=== PATIENT | male | born 1985 | race Two or more races ===

== ENCOUNTER → 2019-01-25 | Day surgery (SDC) | payer SELFPAY ==
[~2019-01-25] MED LIST: IV RINGERS,LACTATED 1000ML 1,000 ML IV SCH; LIDOCAINE 1% PF 2 ML VIAL. ONE; PROPOFOL 60 ML IV ONE
[2019-01-25 14:57] VITALS: BP 121/76
--- NOTE | 2019-01-26 05:17 | CONS ---
DATE OF CONSULTATION: HISTORY OF PRESENT ILLNESS: A 33-year-old male seen with diffuse abdominal pain, is not improved with MiraLax. No family history of gallbladder disease encountered. Previous ultrasound was normal. He does have increasing discomfort with meals and constipation. No melena and/or hematochezia are noted via inspector and sorter. For the continued issues, he is here today for further evaluation. PAST MEDICAL HISTORY: History of possible bowel obstruction. ALLERGIES: None. MEDICATIONS: None. FAMILY AND SOCIAL HISTORY: Noncontributory. REVIEW OF SYSTEMS: Per records. PHYSICAL EXAMINATION: GENERAL: Reveals a well-nourished, well-developed male. VITAL SIGNS: Temp is 99, pulse 67, respiratory rate 16. HEENT: Normocephalic and atraumatic head. Pupils and extraocular muscles are not tested. Sclerae anicteric. NECK: Supple. LUNGS: Clear. CARDIOVASCULAR: Reveals an S1, S2 without S3, S4 or appreciable murmur. ABDOMEN: Reveals soft abdomen. Normal bowel sounds without appreciable hepatosplenomegaly. EXTREMITIES: Reveals no cyanosis, clubbing, edema. IMPRESSION: Diffuse abdominal pain with change in bowel habits, etiology is to be determined; celiac disease; peptic ulcer disease; colon or gastric cancer; other differential as well as partial obstruction. Therefore, recommend if upper endoscopy and colonoscopy is unrevealing, then a CT scan with small bowel series would be pursued. ZACHERY CANNON MD DR: GUILLE/gilda JOB#: [id number] / [id number]
--- NOTE | 2019-01-29 17:11 | PATHOLOGY ---
[facility] Accession Number: [id number] . 01 Material submitted: . duodenum - DOUDENAL BIOPSY R/O CELIAC . 01 Clinical history: . Abdominal pain . 02 Diagnosis: Duodenal biopsy: - No significant pathologic abnormalities. (JPM:real estate representative; 01/26/2019) MBR/01/26/2019 . 02 Comment: Sections of the duodenal biopsy reveal multiple segments of small intestine mucosa. Where best oriented, the mucosal villi show no sprue-like changes or significant inflammatory changes. (JPM:real estate representative; 01/26/2019) . 02 Electronically signed: . Gonzalez Ruiz MD, Pathologist NPI- [id number] . 01 Gross description: . Received in formalin labeled "Armaan Castañeda, duodenal BX, rule out celiac," are multiple segments of martinez soft tissue measuring 1.5 x 0.5 x 0.1 cm in aggregate dimensions. The specimen is filtered and entirely submitted in cassette A1. (TSD; 01/25/2019) TOB/TOB . 02 Pathologist provided ICD-10: R10.9 . 02 CPT . 518634 Specimen Comment: A courtesy copy of this report has been sent to Specimen Comment: [phone], . Specimen Comment: Report sent to / DR GUILLEN Performed at: 01 [facility] [address], [place] [id number] MD Antonio Perkins MD Phone: [phone] Performed at: 02 [facility] [address], [place] [id number] MD Gonzalez Ruiz MD Phone: [phone]
== END | disposition home or self-care (01) ==
LOC: SURG 13:04
PROVIDERS: ATTEND Internal Medicine Gastroenterology
DX: K31.89 Other diseases of stomach and duodenum (principal); K64.0 First degree hemorrhoids
CPT/HCPCS: 43239; 45378; 88305; J2704